=== PATIENT | female | born 1990 | race Two or more races ===

== ENCOUNTER 2018-04-13 11:30 | Emergency (ER) | payer MEDICAID ==
[2018-04-13] MEDS ORDERED: Bacitracin pkt 1 gm Pkt TP ONE (13:48)
[2018-04-13] MEDS: Triple Antibiotic 0.94 gm Pkt TP SCH (14:16)
--- NOTE | 2018-05-04 09:23 | ER Physician Documentation ---
DATE OF SERVICE: CHIEF COMPLAINT: Bug bites. HISTORY OF PRESENT ILLNESS: The patient has a bug bite on her right calf and her upper back that she has had since Monday. She said she has been treating with alcohol pads, hydrocortisone and neomycin, but this has not been effective. The patient denies any other complaints of fevers or chills or red streaks or pus. PAST MEDICAL HISTORY: Unremarkable. PAST SURGICAL HISTORY: Unremarkable. REVIEW OF SYSTEMS: Positive for redness and a scab on both bug bites and scab with loss of tissue on the right back. The patient denies any fevers, chills, cough, sputum, dysuria or musculoskeletal complaints. She denies any headache as well. PHYSICAL EXAMINATION: GENERAL: The patient is a well-developed, well-nourished female in no apparent distress. NEUROLOGIC: Cranial nerves 2-12 intact. LUNGS: Clear to auscultation bilaterally. COR: Regular rate and rhythm. EXTREMITIES: Full range of motion and intact. The right lower leg includes a right calf bug bite which is slightly erythematous. There is no pus present. There is no evidence of abscess. There is no lymphangitis, no crepitance and there is no lymphadenopathy in the right groin. The right mid back to upper back area includes a bug bite, which measure the size of an eraser of a pencil. The central area is necrotic with a brown area with a loss of skin and a little bit of the dermis. There is no evidence of an abscess, no lymphangitis, no crepitance present. No axillary lymphadenopathy present. ASSESSMENT AND PLAN: Brown recluse spider bite with early infection of the right upper back and separate right bug bite in the lower extremity, both with slight erythema present. No evidence of abscess. The patient was instructed and shown how to clean the areas with Betadine and hydrogen peroxide and apply a neosporin ointment such as Bactroban or bacitracin or triple antibiotic ointment. She was given a prescription for Bactrim. She was advised to come back or follow up with her primary care doctor if anything progressed. JOB# [id number]
== END 2018-04-13 13:54 | disposition home or self-care (01) ==
LOC: ER 11:30
DX: S80.861A Insect bite (nonvenomous), right lower leg, initial encounter (principal); S20.469A Insect bite (nonvenomous) of unspecified back wall of thorax, initial encounter; W57.XXXA Bitten or stung by nonvenomous insect and other nonvenomous arthropods, initial encounter; Y93.89 Activity, other specified; Y92.89 Other specified places as the place of occurrence of the external cause; Y99.8 Other external cause status
CPT/HCPCS: 99284; 96372 ×2; 81025; J1885; J0696; Z7502

== ENCOUNTER 2018-06-28 05:13 | Emergency (ER) | payer MEDICAID ==
--- NOTE | 2018-06-28 05:48 | ED Physician Chart ---
ED Chief Complaint/HPI - Patient Information Date Seen:: 06/28/18 Time Seen:: 05:15 Chief Complaint:: Paresthesias History of Present Illness:: onset x 3 hours of paresthesias, weakness, numbness, and tingling sensations to both LEs, both UEs, and Facial regions with gait changes and distubance; pt admits to fever x 3 days with intermittent palpitations; pt denies trauma, H/As , S/T, neck pain, C/P, SOB, cough, congestion, Abd. Pain, A/N/V/D/C, chills, or urinary s/s Allergies:: Allergies Allergy/AdvReac Type Severity Reaction Status Date / Time No Known Allergies Allergy Verified 04/13/18 11:43 Vitals:: Vital Signs - 8 hr 06/28/18 05:15 Temp 101.1 F HR 89 RR 17 BP 132/75 O2 Sat % 98 Historian:: Patient, Family Member Review:: Nurse's Note Reviewed, Old Chart Reviewed <Jake Rush - Last Filed: 06/28/18 05:43> - Patient Information Allergies:: Allergies Allergy/AdvReac Type Severity Reaction Status Date / Time No Known Allergies Allergy Verified 04/13/18 11:43 Vitals:: Vital Signs - 8 hr 06/28/18 06/28/18 05:15 07:35 Temp 101.1 F 98.1 F HR 89 99 RR 17 18 BP 132/75 115/68 O2 Sat % 98 99 <Jordy Freeman - Last Filed: 06/28/18 10:52> ED Review of Systems - Review of Systems General/Constitutional: Fever, No chills, No weight loss, Weakness, No diaphoresis, No edema, No loss of appetite Skin: No skin lesions, No rash, No bruising Head: No headache, No light-headedness Eyes: No loss of vision, No pain, No diplopia ENT: No earache, No nasal drainage, No sore throat, No tinnitus Neck: No neck pain, No swelling, No thyromegaly, No stiffness, No mass noted Cardio Vascular: No chest pain, Palpitations, No PND, No orthopnea, No edema Pulmonary: SOB, No cough, No sputum, No wheezing GI: Nausea, Vomiting, Diarrhea, Pain, No melena, No hematochezia, No constipation, No hematemesis G/U: No dysuria, No frequency, No hematuria, No nacturia Appetizer Packer: No vaginal discharge, No abnormal vaginal bleed, No contraction Musculoskeletal: No bone or joint pain, No back pain, No muscle pain Endocrine: No polyuria, No polydipsia Psychiatric: No prior psych history, No depression, No anxiety, No suicidal ideation, No homicidal ideation, No auditory hallucination, No visual hallucination Hematopoietic: No bruising, No lymphadenopathy Allergic/Immuno: No urticaria, No angioedema Neurological: No syncope, No focal symptoms, Weakness, Paresthesia, No headache , No seizure, No dizziness, No confusion, No vertigo <LuluJake wang - Last Filed: 06/28/18 05:43> ED Past Medical History - Past Medical History Obtainable: Yes Past Medical History: Thyroid disorder (Thyroid Cancer) Family History: HTN Social History: Non Smoker, No Alcohol, No Drug Use, Surgical History: other (Thyroidectomy) Psychiatricy History: None Medication: Reviewed <Jake Rush - Last Filed: 06/28/18 05:43> Family Medical History - Family Member Mother History Unknown: Yes Ethnicity: Living Status: Still Living <Victor ManuelJake - Last Filed: 06/28/18 05:43> ED Physical Exam - Physical Examination General/Constitutional: Awake, Well-developed, well-nourished, Alert, No distress, GCS 15, Non-toxic appearing, Ambulatory Head: Atraumatic Eyes: Lids, conjuctiva normal, PERRL, EOMI Skin: Nl inspection, No rash, No skin lesions, No ecchymosis, Well hydrated, No lymphadenopathy ENMT: External ears, nose nl, TM canals nl, Nasal exam nl, Lips, teeth, gums nl , Oropharynx nl, Tonsils nl Neck: Nontender, Full ROM w/o pain, No JVD, No nuchal rigidity, No bruit, No mass, No stridor Respiratory: Nl effort/Exclusion, Clear to Auscultation, No Wheeze/Rhonchi/Rales Cardio Vascular: RRR, No murmur, gallop, rubs, NL S1 S2, Carotid/Femoral/Distal pulses equal bilaterally GI: No tenderness/rebounding/guarding, No organomegaly, No hernia, Normal BS's, Nondistended, No mass/bruits, No McBurney tenderness : No CVA tenderness Extremities: No tenderness or effusion, Full ROM, normal strength in all extremities, No edema, Normal digits & nails Neuro/Psych: Alert/oriented, DTR's symmetric, Normal sensory exam, Normal motor strength, Judgement/insight normal, Mood normal, Normal gait, No focal deficits Misc: Normal back, No paraspinal tenderness <Jake Rush - Last Filed: 06/28/18 05:43> ED Labs/Radiology/EKG Results - Lab Results Results: Laboratory Tests 06/28/18 06/28/18 06/28/18 05:30 05:50 05:50 WBC 9.6 RBC 5.10 Hgb 15.3 Hct 46.3 MCV 90.8 MCH 30.0 MCHC Differential 33.1 RDW 13.2 Plt Count 250 MPV 8.6 Neutrophils % 84.8 H Lymphocytes % 9.1 L Monocytes % 4.5 Eosinophils % 1.0 Basophils % 0.6 PT INR PTT (Actin FS) D-Dimer 391 Sodium 136 Potassium 3.6 Chloride 104 Carbon Dioxide 19.6 L Anion Gap 16.0 BUN 26 H Creatinine 0.7 Est GFR ( Amer) > 60.0 Est GFR (Non-Af Amer) > 60.0 BUN/Creatinine Ratio 37.1 Glucose 112 H Whole Bld Lactic Acid Calcium 8.6 Magnesium 1.9 Total Bilirubin 0.3 AST 24 ALT 19 Alkaline Phosphatase 49 Creatine Kinase 66 Troponin I B-Natriuretic Peptide Total Protein 7.5 Albumin 4.2 Globulin 3.3 Albumin/Globulin Ratio 1.3 Triglycerides 65 Cholesterol 135 LDL Cholesterol Direct 71 L HDL Cholesterol 61 Amylase 35 Lipase 26 TSH Serum , Qual Urine Source CLEAN C Urine Color YELLOW Urine Clarity TURBID H Urine pH 7.0 Ur Specific Orange 1.020 Urine Protein NEGATIVE Urine Glucose (UA) NEGATIVE Urine Ketones 40 H Urine Blood NEGATIVE Urine Nitrate POSITIVE H Urine Bilirubin NEGATIVE Urine Urobilinogen 1.0 Ur Leukocyte Esterase NEGATIVE Urine RBC NONE SEEN Urine WBC 2-5 Ur Epithelial Cells FEW Urine Bacteria 1+ H Urine Mucus MODERATE Influenza A (Rapid) Influenza B (Rapid) 06/28/18 06/28/18 06/28/18 05:50 05:50 05:50 WBC RBC Hgb Hct MCV MCH MCHC Differential RDW Plt Count MPV Neutrophils % Lymphocytes % Monocytes % Eosinophils % Basophils % PT INR PTT (Actin FS) D-Dimer Sodium Potassium Chloride Carbon Dioxide Anion Gap BUN Creatinine Est GFR ( Amer) Est GFR (Non-Af Amer) BUN/Creatinine Ratio Glucose Whole Bld Lactic Acid Calcium Magnesium Total Bilirubin AST ALT Alkaline Phosphatase Creatine Kinase Troponin I < 0.01 L B-Natriuretic Peptide < 5.0 L Total Protein Albumin Globulin Albumin/Globulin Ratio Triglycerides Cholesterol LDL Cholesterol Direct HDL Cholesterol Amylase Lipase TSH Serum , Qual NEGATIVE Urine Source Urine Color Urine Clarity Urine pH Ur Specific Orange Urine Protein Urine Glucose (UA) Urine Ketones Urine Blood Urine Nitrate Urine Bilirubin Urine Urobilinogen Ur Leukocyte Esterase Urine RBC Urine WBC Ur Epithelial Cells Urine Bacteria Urine Mucus Influenza A (Rapid) Influenza B (Rapid) 06/28/18 06/28/18 06/28/18 05:50 05:50 05:50 WBC RBC Hgb Hct MCV MCH MCHC Differential RDW Plt Count MPV Neutrophils % Lymphocytes % Monocytes % Eosinophils % Basophils % PT 9.8 INR 0.94 PTT (Actin FS) 29.5 D-Dimer Sodium Potassium Chloride Carbon Dioxide Anion Gap BUN Creatinine Est GFR ( Amer) Est GFR (Non-Af Amer) BUN/Creatinine Ratio Glucose Whole Bld Lactic Acid 1.20 Calcium Magnesium Total Bilirubin AST ALT Alkaline Phosphatase Creatine Kinase Troponin I B-Natriuretic Peptide Total Protein Albumin Globulin Albumin/Globulin Ratio Triglycerides Cholesterol LDL Cholesterol Direct HDL Cholesterol Amylase Lipase TSH 0.62 Serum , Qual Urine Source Urine Color Urine Clarity Urine pH Ur Specific Orange Urine Protein Urine Glucose (UA) Urine Ketones Urine Blood Urine Nitrate Urine Bilirubin Urine Urobilinogen Ur Leukocyte Esterase Urine RBC Urine WBC Ur Epithelial Cells Urine Bacteria Urine Mucus Influenza A (Rapid) Influenza B (Rapid) 06/28/18 07:43 WBC RBC Hgb Hct MCV MCH MCHC Differential RDW Plt Count MPV Neutrophils % Lymphocytes % Monocytes % Eosinophils % Basophils % PT INR PTT (Actin FS) D-Dimer Sodium Potassium Chloride Carbon Dioxide Anion Gap BUN Creatinine Est GFR ( Amer) Est GFR (Non-Af Amer) BUN/Creatinine Ratio Glucose Whole Bld Lactic Acid Calcium Magnesium Total Bilirubin AST ALT Alkaline Phosphatase Creatine Kinase Troponin I B-Natriuretic Peptide Total Protein Albumin Globulin Albumin/Globulin Ratio Triglycerides Cholesterol LDL Cholesterol Direct HDL Cholesterol Amylase Lipase TSH Serum , Qual Urine Source Urine Color Urine Clarity Urine pH Ur Specific Orange Urine Protein Urine Glucose (UA) Urine Ketones Urine Blood Urine Nitrate Urine Bilirubin Urine Urobilinogen Ur Leukocyte Esterase Urine RBC Urine WBC Ur Epithelial Cells Urine Bacteria Urine Mucus Influenza A (Rapid) NEG FOR INF A Influenza B (Rapid) NEG FOR INF B - EKG Interpretations Rate & Rhythm: sinus tach with a rate of 109; normal axis <Jordy Freeman - Last Filed: 06/28/18 10:52> ED Assessment - Assessment General Assessment: Patient stated that this morning her lips followed by her arms and legs became numb and her legs were weak so she could not walk. No recent cough or sore throat. The temperature 2 days ago was 101. Patient has had thyroidectomy and lymph node dissection left side of neck for thyroid cancer. Since then she' s had left arm weakness for which she takes physical therapy. <Jordy Freeman - Last Filed: 06/28/18 10:52> ED Septic Shock - . Is Septic Shock (SBP<90, OR Lactate>4 mmol\L) present?: No - <6hrs of presentation: Vital Signs: Vital Signs - 8 hr 06/28/18 05:15 Temp 101.1 F HR 89 RR 17 BP 132/75 O2 Sat % 98 <Jake Rush - Last Filed: 06/28/18 05:43> - . Is Septic Shock (SBP<90, OR Lactate>4 mmol\L) present?: No - <6hrs of presentation: Vital Signs: Vital Signs - 8 hr 06/28/18 06/28/18 05:15 07:35 Temp 101.1 F 98.1 F HR 89 99 RR 17 18 BP 132/75 115/68 O2 Sat % 98 99 <Jordy Freeman - Last Filed: 06/28/18 10:52> ED Reassessment (Disposition) - Reassessment Reassessment Condition:: Improved - Diagnosis Diagnosis:: Paresthesias; Weakness; Palpitations; Fever <Jake Rush - Last Filed: 06/28/18 05:43> - Reassessment Reassessment:: At 0910 patient said she could not walk at time of admission but she was tested at this time and she walked with a slightly unsteady gait. Deep tendon reflexes of the knees and ankles were checked and were 2 out of 4 with fingers flexed and hands together pulling in opposite directions. At 1035 patient walked probably minimally less than normal and she reported that the weakness was markedly improved but she still has some numbness of her legs. 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 Since patient is improving she will be discharged and was told if the weakness recurs she should either return to the emergency department immediately or call 911. Reassessment Condition:: Improved - Diagnosis Diagnosis:: viral syndrome - Aftercare/Follow up Instructions Aftercare/Follow-Up Instructions:: Refer to Discharge Instructions - Patient Disposition Discharge/Transfer:: Home Condition at Disposition:: Stable, Improved <Jordy Freeman - Last Filed: 06/28/18 10:52>
[2018-06-28] MEDS ORDERED: Sodium Chloride 0.9% 1,000 ML IV ONE (05:50)
[2018-06-28 06:18] LABS: % BASOPHILS 0.6 % (0.0-2.0); % LYMPHOCYTES 9.1 % (20.0-50.0); % MONOCYTES 4.5 % (2.0-10.0); % NEUTROPHILS 84.8 % (40.0-80.0); BASOPHILE ABSOLUTE 0.1 Th/cumm (0-0.2); EOSINOPHILE ABSOLUTE 0.1 Th/cmm (0.1-0.4); HEMATOCRIT 46.3 % (41.0-60); HEMOGLOBIN 15.3 gm/dL (12-16); LYMPHOCYTE ABSOLUTE 0.9 Th/cmm (1.5-3.0); MEAN CELL VOLUME 90.8 fl (81-100); MEAN CORPUSCULAR HGB CONC 33.1 pg (28.0-36.0); MEAN PLATELET VOLUME 8.6 fl; MONOCYTE ABSOLUTE 0.4 Th/cmm (0.3-1.0); NEUTROPHILE ABSOLUTE 8.1 Th/cmm (1.8-8.0); PLATELET COUNT 250 Th/cmm (150-400); RED CELL DISTRIBUTION WIDTH 13.2 % (11.5-20.0); WHITE BLOOD COUNT 9.6 Th/cmm (4.8-10.8)
[2018-06-28 06:34] LABS: URINE SOURCE CLEAN C
[2018-06-28 06:34] LABS: INR 0.94 (0.5-1.4); PROTHROMBIN TIME (TEST) 9.8 SECONDS (9.5-11.5)
[2018-06-28 06:46] LABS: URINE BILIRUBIN NEGATIVE (NEGATIVE); URINE BLOOD NEGATIVE (NEGATIVE); URINE GLUCOSE (UA) NEGATIVE (NEGATIVE); URINE KETONE 40 mg/dL (NEGATIVE); URINE LEUKOCYTE ESTERASE NEGATIVE (NEGATIVE); URINE MICROSCOPIC INDICATED? YES; URINE NITRATE POSITIVE (NEGATIVE); URINE PROTEIN NEGATIVE (NEGATIVE)
[2018-06-28 06:48] LABS: ALB/GLOB RATIO 1.3 (1.0-1.8); ALBUMIN 4.2 gm/dL (3.7-5.3); ALKALINE PHOSPHATASE 49 U/L (34-104); AMYLASE SERUM 35 U/L (29-103); BILIRUBIN,TOTAL 0.3 mg/dL (0.3-1.0); BUN - UREA NITROGEN 26 mg/dL (7-25); CALCIUM SERUM 8.6 mg/dL (8.6-10.3); CARBON DIOXIDE 19.6 mEq/L (21.0-31.0); CHLORIDE 104 mEq/L (98-107); CHOLESTEROL 135 mg/dL (<200); CREATININE - SERUM 0.7 mg/dL (0.6-1.2); CREATININE KINASE 66 U/L (30-223); GFR AFRICAN-AMERICAN > 60.0 ml/min (>90); GFR NON AFRICAN-AMERICAN > 60.0 ml/min; GLUCOSE 112 mg/dL (70-105); HDL -HIGH DENSITY LIPOPROTEIN 61 mg/dL (23-92); LIPASE 26 U/L (11-82); MAGNESIUM 1.9 mg/dL (1.9-2.7); POTASSIUM SERUM 3.6 mEq/L (3.5-5.1); SGOT 24 U/L (13-39); SGPT/ALT 19 U/L (7-52); SODIUM SERUM 136 mEq/L (136-145); TOTAL PROTEIN,SERUM 7.5 gm/dL (6.0-8.3); TRIGLYCERIDES 65 mg/dL (<150)
[2018-06-28 06:54] LABS: URINE CLARITY TURBID (CLEAR); URINE COLOR YELLOW
[2018-06-28 06:59] LABS: URINE RBC NONE SEEN /hpf (0-5)
[2018-06-28 07:00] LABS: DDIMER QUANT 391 ng/mL (100-400)
[2018-06-28 07:00] LABS: URINE BACTERIA 1+ /hpf (NONE SEEN); URINE EPITHELIAL CELLS FEW /lpf (FEW)
[2018-06-28 08:38] LABS: INF A SCREEN NEG FOR INF A; INF B SCREEN NEG FOR INF B
== END 2018-06-28 11:10 | disposition home or self-care (01) ==
LOC: ER 05:13
DX: B34.9 Viral infection, unspecified (principal); R20.2 Paresthesia of skin; R53.1 Weakness; R50.9 Fever, unspecified; R00.2 Palpitations; R11.2 Nausea with vomiting, unspecified; R19.7 Diarrhea, unspecified; E07.9 Disorder of thyroid, unspecified; Z90.89 Acquired absence of other organs
CPT/HCPCS: 99284; 96361; 96374; 94760; 93005; 84484; 83880; 36415; 85379; 83605; 84443; 87804 ×2; 85025; 85610; 85730; 87086; 81001; 82150; 82550; 84703; 83690; 83735; 80053; 80061; 84439; 84436; 84481; 87040 ×2; Z7610; J2405; 84479-90; J7030; Z7502